=== PATIENT | male | born 2000 | race Caucasian/White ===

== ENCOUNTER 2023-09-23 11:23 | Day surgery (SDC) | payer OTHER ==
[~2023-09-23] VITALS: Ht 170.2 cm; Wt 82.7 kg
[~2023-09-23 11:23] MED LIST: HYDROmorphone 2 MG/1 ML VIAL IV PRN; LR 1,000 ML IV SCH; Ondansetron 4 MG/2 ML VIAL IV PRN; droPERidol 2.5 MG/ML 2 ML VIAL IV PRN; fentaNYL 50 MCG/ML 2 ML VIAL IV PRN
[2023-09-23] MEDS ORDERED: Lidocaine PF 2% (20 MG/ML) 5 ML VIAL ONE (12:54)
[2023-09-23] MEDS ORDERED: fentaNYL 50 MCG/ML 2 ML VIAL ONE (12:54)
[2023-09-23] MEDS ORDERED: Ondansetron 4 MG/2 ML VIAL ONE (12:55)
[2023-09-23] MEDS ORDERED: dexAMETHasone 10 MG/ML VIAL ONE (12:55)
[2023-09-23 13:03] VITALS: BP 127/67; PULSE 63; TEMP 98.2
[2023-09-23] MEDS ORDERED: Ketorolac 15 MG/ML VIAL IV PRN (13:30)
[2023-09-23] MEDS ORDERED: oxyCODONE/Acetaminophen 5-325 MG TAB PO PRN (13:30)
[2023-09-23] MEDS ORDERED: BACITRACIN TOP ONE (13:49)
[2023-09-23] MEDS ORDERED: Topical Skin Adhesive 1 EACH (1 ML) TOP ONE (13:49)
[2023-09-23 15:15] VITALS: BP 117/78; PULSE 62; TEMP 97.3
[2023-09-23 15:30] VITALS: BP 128/80; PULSE 64
[2023-09-23 15:45] VITALS: BP 119/75; PULSE 60
--- NOTE | 2023-09-23 16:10 | NUR ---
1515 RETURNS TO ROOM 4 PER CART. AWAKE, ALERT. RESP UNLABORED. HOB ELEVATED 30 DEGREES. ABD SOFT. SCROTAL DRESSING AND SCROTAL SUPPORT IN PLACE. NO DRAINAGE OBSERVED. VITAL SIGNS OBTAINED. CALL LIGHT AT SIDE. FRIEND IN ROOM 1530 HOB ELEVATED 70 DEGREES. TOLERATES PO JUICE WITHOUT NAUSEA REPORTS MILD SCROTAL DISCOMFORT. ICE PACK IN PLACE 1545 DISCHARGE INSTRUCTIONS REVIEWED. PATIENT VERBALIZES UNDERSTANDING. COPY PROVIDED IN DISCHARGE FOLDER 1600 SITS ON EDGE OF CART. DRESSES SELF
[2023-09-23 17:04] VITALS: BP 129/75; PULSE 72; TEMP 97.4
== END 2023-09-23 16:10 | disposition home or self-care (01) ==
LOC: SDCO 11:23
DX: N43.40 Spermatocele of epididymis, unspecified (principal); N44.2 Benign cyst of testis; F17.290 Nicotine dependence, other tobacco product, uncomplicated
CPT/HCPCS: J0690; J1100; J1170; J1885; J2405; J2704; J3010; J7120